=== PATIENT | male | born 1975 | race Caucasian/White ===

== ENCOUNTER → 2017-11-30 | Outpatient (CLI) | payer BC ==
--- NOTE | 2017-11-30 13:49 | XR ---
Abdomen HISTORY: Pain, left lower quadrant pain and hiatal hernia Frontal view of the abdomen on [address] scan 09/21/2015 There is no bowel obstruction or pneumoperitoneum. There is a scoliotic curvature to the lumbar spine . Stress change noted at the right sacroiliac joint. Lung bases are clear. No evident pathologic calc ification. IMPRESSION: Scoliosis
== END | disposition home or self-care (01) ==
LOC: RADXRMAIN 12:54
PROVIDERS: ATTEND Family Medicine
DX: M41.9 Scoliosis, unspecified (principal); K46.9 Unspecified abdominal hernia without obstruction or gangrene
CPT/HCPCS: 74018

== ENCOUNTER 2018-03-13 09:38 | Day surgery (SDC) | payer BC ==
[2018-03-08 11:16] VITALS: BMI 25.0
--- NOTE | 2018-03-13 07:46 | P.GSHP ---
History of Present Illness H&P Date: 03/13/18 Chief Complaint: Bilateral inguinal hernia Patient presented in January complaining of a bulge in both right and left groin. Right side bigger than left. Mostly having pain in the right groin. No change in bowel habits. No nausea or vomiting. No prior surgical repair. Past Medical History Past Medical History: No Reported History Additional Past Medical History / Comment(s): BILAT INGUINAL HERNIAS History of Any Multi-Drug Resistant Organisms: None Reported Additional Past Surgical History / Comment(s): COLONOSCOPY Past Anesthesia/Blood Transfusion Reactions: No Reported Reaction Smoking Status: Current every day smoker - Past Family History Mother Family Medical History: No Reported History Medications and Allergies Home Medications Medication Instructions Recorded Confirmed Type No Known Home Medications [No 11/18/15 03/08/18 History Known Home Medications] Allergies Allergy/AdvReac Type Severity Reaction Status Date / Time No Known Allergies Allergy Verified 03/08/18 11:12 Surgical - Exam Physical exam: General: Well-developed, well-nourished HEENT: Normocephalic, sclerae nonicteric Abdomen: Nontender, nondistended bilateral reducible inguinal hernia right greater than left Extremities: No edema Neuro: Alert and oriented Assessment and Plan (1) Bilateral inguinal hernia Narrative/Plan: Will proceed with bilateral inguinal hernia repair. Risks of bleeding, infection, recurrence, chronic pain, conversion, bladder and bowel injury, numbness, scarring, and anesthesia related comp cases were discussed. He understands and wishes to proceed Status: Acute Code(s): K40.20 - BI INGUINAL HERNIA, W/O OBST OR GANGRENE, NOT SPCF RECUR SNOMED Code(s): 22931234
[~2018-03-13 09:38] MED LIST: DEXAMETHASONE SOD PHOSPHATE 10 MG/ML 1 ML VIAL IV ONE; HEPARIN SODIUM,PORCINE 5,000 UNIT/ML 1 ML VIAL SQ ONE; LIDOCAINE 1% 20 ML VIAL (10MG/ML) FOR IV START INTRADERMA PRN; MORPHINE SULFATE 2 MG/ML SYRINGE IV PRN; ONDANSETRON ODT 4 MG TAB PO ONE; SCOPOLAMINE 1.5MG/72HR PATCH TRANSDERM ONE; ceFAZolin IN SWFI 2 GM/20 ML SYRINGE IVP ONE
[2018-03-13] MEDS: LACTATED RINGERS 1,000 ML IV SCH ×2 (10:42→10:43)
[2018-03-13] MEDS ORDERED: MIDAZOLAM 2 MG/2 ML VIAL ONE (11:28)
[2018-03-13] MEDS ORDERED: ROCURONIUM BROMIDE 10 MG/ML 10 ML VIAL IV ONE (11:28)
[2018-03-13] MEDS ORDERED: SUCCINYLCHOLINE CHLORIDE 100 MG/5 ML SYR IV ONE (11:28)
[2018-03-13] MEDS ORDERED: PHENYLEPHRINE-0.9% NACL SYG 1 MG/10 ML SYRINGE ONE (11:28)
[2018-03-13] MEDS ORDERED: PROPOFOL 10 MG/ML 20 ML VIAL IV ONE (11:28)
[2018-03-13] MEDS ORDERED: GLYCOPYRROLATE 0.2 MG/ML 2 ML VIAL ONE (11:28)
[2018-03-13] MEDS ORDERED: LIDOCAINE 1% INJ 10MG/ML (20 ML MDV) ONE (11:28)
[2018-03-13] MEDS ORDERED: fentaNYL (PF) 50 MCG/ML 2 ML AMP ONE (11:28)
[2018-03-13] MEDS ORDERED: NEOSTIGMINE 1 MG/ML 10 ML VIAL ONE (11:28)
[2018-03-13] MEDS ORDERED: MORPHINE SULFATE 10 MG/ML SYRINGE ONE (11:28)
[2018-03-13] MEDS ORDERED: BUPIVACAINE (PF) 0.25% 30 ML VIAL SQ ONE (11:51)
[2018-03-13] MEDS ORDERED: NALOXONE 0.4 MG/ML 1 ML VIAL IV PRN (13:29)
[2018-03-13] MEDS ORDERED: HYDROcodone/APAP 5-325MG 1 EACH TAB PO PRN (13:29)
--- NOTE | 2018-03-13 13:32 | P.OP ---
Date of Procedure: 03/13/18 Procedure(s) Performed: PREOPERATIVE DIAGNOSIS: Bilateral inguinal hernia POSTOPERATIVE DIAGNOSIS: Same PROCEDURE: Laparoscopic repair bilateral inguinal hernia with the da Erica robot assistance with mesh SURGEON: Isaac EBL: Minimal ANESTHESIA: General COMPLICATIONS: None OPERATIVE PROCEDURE: Patient was placed in the operating table in the supine position. The patient was placed under general anesthesia. The patient was then placed in lithotomy. The abdomen was prepped and draped in usual sterile fashion. A small curvilinear supraumbilical incision was made. The fascia was retracted anteriorly with Reinholds forceps. The Veress needle was inserted. The saline drop test was normal. Insufflation took place to 15 mmHg. a 5 mm trocar was advanced into the peritoneal cavity. Later this was switched to a 12 mm trocar under direct visualization. 2 additional 8 mm trochars were placed in the right upper quadrant and left upper quadrant under visualization. The robotic arms were then brought in and docked into place. The fenestrated bipolar was used in the left arm and the laparoscopic judson was utilized in the right arm. A 30 12 mm scope was used in the up position. The peritoneal cavity was inspected. The patient had a visible indirect hernia on the right but the peritoneum on the left was flat. In the office however I was able to feel a distinct hernia in that location and we proceeded with bilateral inguinal hernia repair. The right side was first addressed. The peritoneum was incised in a horizontal fashion cephalad to the internal inguinal ring. Following that careful dissection of the preperitoneal space took place. This took place using both electrocautery, sharp dissection but primarily blunt dissection. Visualization of the pubic tubercle and Ryder's ligament took place medially. Full dissection took place laterally as well. A moderate size lipoma of the cord was reduced back into the preperitoneal space. The hernia sac was fully dissected. Once we had adequate space the 15 x 10 progrip mesh was advanced into the preperitoneal space and flattened out appropriately to cover all potential hernia sites. No sutures were used. The left side was then addressed in a similar fashion. A mere incision was made on the peritoneum. The patient had a large lipoma of the cord that was reduced. There was no true hernia defect identified however. The peritoneum was cleared circumferentially using blunt dissection. The 15 x 10 progress mesh was again utilized and flattened out appropriately. The right and left portions of the mesh were overlapped anterior to the bladder. The peritoneal defect was then closed bilaterally using a locking 2-0 VLok suture. A small defect in the peritoneum at the apex of the indirect hernia sac on the right was closed using a [id number] 3-0 Vicryl stitch. The sutures were then removed. The pneumoperitoneum was then evacuated. The fascia at the 12 mm site was closed using the Nguyễn Dhillon technique and an 0 Vicryl stitch. The skin of all 3 sites was closed using a 4-0 Monocryl stitch. Steri-Strips and sterile dressings were applied. DISPOSITION: Stable to recovery room
[2018-03-13] MEDS ORDERED: diphenhydrAMINE 50 MG/ML 1 ML VIAL IVP ONE (13:40)
[2018-03-13] MEDS: MEPERIDINE 50 MG/ML SYRINGE IVP ONE ×2 (13:40→13:53)
[2018-03-13] MEDS ORDERED: KETOROLAC 30 MG/ML 1 ML VIAL IVP ONE (13:55)
[2018-03-13 14:10] VITALS: TEMP 98.3
[2018-03-13] MEDS ORDERED: HYDROcodone/APAP 5-325MG 1 EACH TAB PO ONE (15:14)
[2018-03-13 16:01] VITALS: BP 142/91; PULSE 64; RESP 16
== END 2018-03-13 16:25 | disposition home or self-care (01) ==
LOC: OR 09:38
PROVIDERS: ATTEND Surgery
DX: K40.20 Bilateral inguinal hernia, without obstruction or gangrene, not specified as recurrent (principal); F17.200 Nicotine dependence, unspecified, uncomplicated
CPT/HCPCS: 49650; S2900

== ENCOUNTER → 2020-01-19 | Outpatient (CLI) | payer BC ==
--- NOTE | 2020-01-19 15:49 | XR ---
EXAMINATION TYPE: XR foot complete bilateral DATE OF EXAM: 01/19/2020 CLINICAL HISTORY: Bilateral foot pain for 2 years TECHNIQUE: Frontal, lateral, and oblique images of bilateral feet were obtained. COMPARISON: None FINDINGS: There is no acute fracture/dislocation evident in either foot. The joint spaces in the bi lateral feet appear aligned. 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 The overlying soft tissue appears unremarkable. IMPRESSION: There is no acute fracture or dislocation in either foot. There is either an old healed navicular fracture on the left or type II os naviculare, which can create pain is there is associated bone marrow edema. MRI could evaluate for bone marrow edema.
== END | disposition home or self-care (01) ==
LOC: RADXRMAIN 14:30
PROVIDERS: ATTEND Family Medicine
DX: M79.672 Pain in left foot (principal); M79.671 Pain in right foot

== ENCOUNTER 2020-06-28 07:24 | Emergency (ER) | payer BC ==
[2020-06-28 07:30] VITALS: TEMP 97.9
--- NOTE | 2020-06-28 08:08 | ED ---
Allergic Reaction HPI - General Chief complaint: Allergic Reaction Stated complaint: bug bite, allergic rxn Time Seen by Provider: 06/28/20 07:31 Source: patient Mode of arrival: ambulatory Limitations: no limitations - History of Present Illness Initial Comments: Patient is a 45-year-old male presenting to the emergency Department with complaints of an ALLERGIC reaction. Patient states when he left his house for work he got bit by something on his left inner ankle that felt like a stinging. He states he does not see what it was. He states when he got to work he was having difficulty breathing so the nurse gave him an EpiPen injection as well as 50 mg of Benadryl. Patient's coworkers then drove him to the ER. Patient works at the [employer]. He states he's never had a reaction like this before. He denies being ALLERGIC to anything. He states right now he feels a little anxious but otherwise okay. He has some mild discomfort at the site of the sting. He denies any pertinent past medical history, takes no medications. He has no further complaints at this time. Upon arrival to the ER, his vital signs are stable. - Related Data Previous Rx's Medication Instructions Recorded Hydrocodone/Acetaminophen [[place] 1 - 2 each PO Q4HR PRN #14 tab 03/13/18 5-325] EPINEPHrine (Auto Inject) [Epipen] 0.3 mg IM ONCE PRN #2 pen 06/28/20 Allergies Allergy/AdvReac Type Severity Reaction Status Date / Time No Known Allergies Allergy Verified 06/28/20 07:26 Review of Systems ROS Statement: Those systems with pertinent positive or pertinent negative responses have been documented in the HPI. ROS Other: All systems not noted in ROS Statement are negative. Past Medical History Past Medical History: No Reported History Additional Past Medical History / Comment(s): BILAT INGUINAL HERNIAS History of Any Multi-Drug Resistant Organisms: None Reported Additional Past Surgical History / Comment(s): COLONOSCOPY Past Anesthesia/Blood Transfusion Reactions: No Reported Reaction Past Psychological History: No Psychological Hx Reported Smoking Status: Current every day smoker Past Alcohol Use History: Daily Past Drug Use History: None Reported - Past Family History Mother Family Medical History: No Reported History General Exam - General Exam Comments Initial Comments: GENERAL: Patient is well-developed and well-nourished. Patient is nontoxic and in no acute distress. HEAD: Atraumatic, normocephalic. EYES: Pupils equal round and reactive to light, extraocular movements intact, sclera anicteric, conjunctiva are normal. Eyelids were unremarkable. ENT: TMs normal, nares patent, oropharynx clear without exudates. Moist mucous membranes. NECK: Normal range of motion, supple without lymphadenopathy or JVD. LUNGS: Unlabored respirations. Breath sounds clear to auscultation bilaterally and equal. No wheezes rales or rhonchi. HEART: Regular rate and rhythm without murmurs, rubs or gallops. ABDOMEN: Soft, nontender, normoactive bowel sounds. No guarding, no rebound. No masses appreciated. : Deferred MUSCULOSKELETAL: Normal extremities with adequate strength and normal range of motion, no pitting or edema. No clubbing or cyanosis. NEUROLOGICAL: Patient is alert and oriented x 3. Normal speech, normal gait. PSYCH: Normal mood, normal affect. SKIN: Warm, Dry, normal turgor. Patient has an area of erythema and very mild swelling to the medial left ankle, consistent with a local reaction to a possible staining. No other rashes or lesions noted. Limitations: no limitations Course Vital Signs 06/28/20 06/28/20 06/28/20 07:26 07:58 08:46 Temperature 97.9 F Pulse Rate 86 87 Respiratory 16 18 16 Rate Blood Pressure 140/85 146/87 O2 Sat by Pulse 96 99 Oximetry Medical Decision Making - Medical Decision Making Patient is a 45-year-old male presenting with a possible staining an ALLERGIC reaction. Patient was administered EpiPen and 50 mg of Benadryl approximately 45 minutes prior to arrival. His vital signs are stable, he has no specific complaints at this time. His breathing is unlabored. Patient was observed for another hour in the ER, his vitals have remained stable is no further complications. I discussed with patient that he may repeat Benadryl dose in 6-8 if needed. I will also give him a prescription for an EpiPen. He needs to follow up with his PCP. He is in agreement with this plan of care. He is stable for discharge. Return parameters were discussed with the patient he verbalizes understanding. Case discussed with Dr. Young. Disposition Clinical Impression: Allergic reaction to insect sting Disposition: HOME SELF-CARE Condition: Stable Instructions (If sedation given, give patient instructions): General Allergic Reaction (ED) Additional Instructions: Please return to the Emergency Department if symptoms worsen or any other concerns. Follow-up with PCP. May repeat Benadryl dose this evening if needed. Prescriptions: EPINEPHrine (Auto Inject) [Epipen] 0.3 mg IM ONCE PRN #2 pen PRN Reason: Anaphylaxis Is patient prescribed a controlled substance at d/c from ED?: No Referrals: David Garcia MD [Primary Care Provider] - 1-2 days
[2020-06-28 08:47] VITALS: BP 146/87; PULSE 87; RESP 16
== END 2020-06-28 08:35 | disposition home or self-care (01) ==
LOC: EC 07:24
DX: T63.481A Toxic effect of venom of other arthropod, accidental (unintentional), initial encounter (principal); F17.200 Nicotine dependence, unspecified, uncomplicated; Y92.149 Unspecified place in prison as the place of occurrence of the external cause
CPT/HCPCS: 99283

== ENCOUNTER → 2021-04-15 | Outpatient (CLI) | payer BC ==
--- NOTE | 2021-04-15 12:53 | XR ---
EXAMINATION TYPE: XR ankle complete bilateral DATE OF EXAM: 04/15/2021 CLINICAL HISTORY: Consistent pain in the bilateral knees and ankles. Patient has a history of helicop ter jumping TECHNIQUE: Frontal, lateral and oblique images of the bilateral ankle are obtained. COMPARISON: None. FINDINGS: Right ankle: No evidence of acute fracture or dislocation of the right ankle. Ankle mortise is intact . Distal tibia and fibular in alignment. Prominent os trigonum. Soft tissues are unremarkable. Tiny A chilles calcaneal spur. Left ankle: No evidence of fracture or dislocation of the left ankle. Ankle mortise is intact. Distal tibia and fibular in alignment. Probable tiny ossicles or old fracture fragments in the plantar soft tissues of the proximal portion of the mid foot.. IMPRESSION: 1. No evidence of acute fracture or dislocation of the bilateral ankles.
--- NOTE | 2021-04-15 15:24 | XR ---
EXAMINATION TYPE: XR knee complete bilateral DATE OF EXAM: 04/15/2021 CLINICAL HISTORY: Bilateral knee pain. Patient was a helicopter transfer TECHNIQUE: Three views of the bilateral knee are obtained. COMPARISON: None. FINDINGS: Left knee: No evidence of fracture or dislocation of the left knee. No significant joint space narrow ing is seen. No joint effusion. Soft tissues are unremarkable. Right knee: No evidence of acute fracture or dislocation of the right knee. Medial, lateral and moe lofemoral compartment joint spaces are well-maintained. No significant joint effusion. Soft tissues a re unremarkable. IMPRESSION: 1. No evidence of fracture or dislocation of the bilateral knees.
== END | disposition home or self-care (01) ==
LOC: RADXRMAIN 11:32
PROVIDERS: ATTEND Family Medicine
DX: M25.561 Pain in right knee (principal); M25.562 Pain in left knee; M25.571 Pain in right ankle and joints of right foot; M25.572 Pain in left ankle and joints of left foot

== ENCOUNTER → 2021-05-04 | Outpatient (CLI) | payer BC ==
--- NOTE | 2021-05-04 14:19 | XR ---
EXAMINATION TYPE: XR cervical spine comp DATE OF EXAM: 05/04/2021 TECHNIQUE: Frontal, lateral, oblique, swimmers, and open mouth view of the cervical spine are obtaine d. HISTORY: M54.2 Cervicalgia COMPARISON: None FINDINGS: There is multilevel uncovertebral and facet arthropathy with bony encroachment upon the right C5-6 an d C6-7 and left C5-6 neural foramen. The alignment is anatomic. No enlargement of the prevertebral so ft tissues. Vertebral body heights are preserved. IMPRESSION: Osteoarthritic changes of the cervical spine.
--- NOTE | 2021-05-04 14:20 | XR ---
EXAMINATION TYPE: XR lumbar spine 2 or 3V DATE OF EXAM: 05/04/2021 COMPARISON: NONE HISTORY: Pain TECHNIQUE: 3 views lumbar spine FINDINGS: There are 5 nonrib-bearing lumbar-type vertebral bodies. Mild levocurvature of the lumbar spine is no edvora. There is mild multilevel osteophytosis with L1 to endplate sclerosis. Lower lumbar facet arthrop athy is seen. Vertebral body heights are preserved. IMPRESSION: Multilevel disc disease and osteoarthritic changes of the lumbar spine, as described.
--- NOTE | 2021-05-04 14:22 | XR ---
EXAMINATION TYPE: XR thoracic spine complete DATE OF EXAM: 05/04/2021 CLINICAL HISTORY: Fall with mid back pain. TECHNIQUE: Frontal, lateral, and swimmer's view of thoracic spine are obtained. COMPARISON: None. FINDINGS: Thoracic spine show satisfactory alignment without evidence of acute fracture or dislocatio n. Vertebral body heights are preserved. Multilevel osteophytosis is noted. IMPRESSION: No acute fracture or dislocation is seen in the thoracic spine. Multilevel disc disease.
--- NOTE | 2021-05-04 14:22 | XR ---
EXAMINATION TYPE: XR shoulder complete LT DATE OF EXAM: 05/04/2021 CLINICAL HISTORY: Tingling, numbness and pain. No known injury TECHNIQUE: Three views of the left shoulder are obtained. COMPARISON: None. FINDINGS: There is no acute fracture/dislocation evident in the left shoulder. The acromioclavicula r and glenohumeral joint spaces appear within normal limits. The visualized ribs are intact and unre markable. IMPRESSION: There is no acute fracture or dislocation in the left shoulder.
== END | disposition home or self-care (01) ==
LOC: RADXRMAIN 12:05
PROVIDERS: ATTEND Family Medicine
DX: M51.34 Other intervertebral disc degeneration, thoracic region (principal); M47.812 Spondylosis without myelopathy or radiculopathy, cervical region; M51.36 Other intervertebral disc degeneration, lumbar region; M47.816 Spondylosis without myelopathy or radiculopathy, lumbar region; M25.512 Pain in left shoulder; W19.XXXA Unspecified fall, initial encounter
CPT/HCPCS: 72050; 72072; 72100

== ENCOUNTER → 2023-03-14 | Outpatient (CLI) | payer BC ==
--- NOTE | 2023-03-14 10:09 | CT ---
EXAMINATION TYPE: CT sinus wo con DATE OF EXAM: 03/14/2023 COMPARISON: None HISTORY: Chronic sinusitis. CT DLP: 654.8 mGycm. Automated Exposure Control for Dose Reduction was Utilized. TECHNIQUE: CT scan of the sinuses is performed without contrast, axial images are obtained, coronal r eformatted images are also reviewed. FINDINGS: There is extensive metallic dental artifact. The paranasal sinuses demonstrate complete opacification of the left maxillary sinus and portions of the left ethmoid air cells. Conclusion the left ostiomeatal complex. There is severe mucosal thickening of the frontal sinus. Oliverio al septal deviation noted. Mild mucous retention cyst or polyp in the right sphenoid sinus.. The ost iomeatal complex is patent bilaterally on the coronal images. Visualized portion of mastoid air cells show no abnormal opacification. The globes are intact bilate rally. IMPRESSION: 1. There is severe incomplete opacification of left maxillary sinus with occlusion of the ostiomeatal complex. There is severe left-sided ethmoidal soft tissue density. Findings could be on the basis of asymmetric severe sinusitis. Sinonasal polyposis in the differential diagnosis. 2. Moderate left-sided frontal sinus mucosal thickening suggestive of chronic sinusitis
== END | disposition home or self-care (01) ==
LOC: RADCTMAIN 09:24
PROVIDERS: ATTEND Otolaryngology
DX: J32.9 Chronic sinusitis, unspecified (principal); J34.89 Other specified disorders of nose and nasal sinuses
CPT/HCPCS: 70486